=== PATIENT | female | born 1985 | race African-American/Black ===

== ENCOUNTER 2019-01-28 22:37 | Inpatient (IN) | payer SELFPAY ==
[~2019-01-28] VITALS: Ht 167.6 cm; Wt 68.0 kg
[2019-01-28] MEDS ORDERED: LIDOCAINE 1% PF 30 ML VIAL. ONE (22:59)
[2019-01-28] MEDS ORDERED: OXYTOCIN 30 UNIT/500 ML PREMIX 500 ML IV ONE (22:59)
[2019-01-28] MEDS ORDERED: OXYTOCIN 30 UNIT/500 ML PREMIX 500 ML IV PRN ×2 (23:15→23:30)
[2019-01-28] MEDS ORDERED: 0.9 % SODIUM CHLORIDE 10 ML DISP.SYRIN. IV PRN ×2 (23:15→23:30)
[2019-01-28] MEDS ORDERED: LIDOCAINE 1% PF 30 ML VIAL. INJ PRN (23:15)
[2019-01-28] MEDS ORDERED: IBUPROFEN 400 MG TABLET. PO PRN ×2 (23:15→23:30)
[2019-01-28] MEDS ORDERED: TERBUTALINE 1 MG/ML VIAL. SQ PRN (23:15)
--- NOTE | 2019-01-28 23:20 | PDOC1 ---
OB - History Hx of Present Care: Limited Care Ultrasounds: No ultrasounds Obstetrical Complications: None Medical Complications: None Other Concerns: previous c/s x 1, then x 5 Past Family/Social History * Past Medical, Surgical, Family and Obstetric Histories reviewed from chart. Blood Type: Unknown Rubella: Unknown RPR/VDRL: Unknown GBS Status: Unknown HBsAG: Unknown OB - Chief Complaint & HPI Date of Admission: Date of Admission: Jan 28, 2019 at 22:37 Chief Complaint/History : 7 Para: 6 EGA: 36 Reason for admission: labor Admission Nurse Assessment Rev: Yes OB - Admission Exam Physical Exam HEENT: Other (dilated pupils) Heart: Other (tachycardia) Lungs: Clear Abdomen: Gravid, Non tender, Soft Extremities: No tenderness or swelling Reflexes: Normal Cervical Dilatation: 10cm Effacement: 100% Station: +3 Membranes: Intact Heart Rate: Normal Accelerations: Accelerations Present Contractions on Admission: < 5 Minutes Apart Intensity: Firm Text A: 36 wks IUP PTL Previous c/s x 1 Previous x 5 Limited PNC P: Admit labor management. SONIA VALE Jr, MD Jan 28, 2019 23:20
--- NOTE | 2019-01-28 23:22 | PDOC ---
VAGINAL DELIVERY DATE DATE: 01/28/19 TIME: 23:20 : 7 Para: 7 EGA: 36 VAGINAL DELIVERY: VTX VACCUM ASSISTED: No PLACENTA: Spontaneous 8/9 SEX: Female WEIGHT Weight [2845 gm ] Nuchal Cord: No Amniotic Fluid: Clear PAIN: Natural EPISIOTOMY: No EXTENSION: No EBL 300 ml COMPLICATIONS none CONDITION pt. stable Signs of Intrauterine Infectio: None Shoulder Dystocia: No SONIA VALE Jr, MD Jan 28, 2019 23:22
[2019-01-28] MEDS ORDERED: BENZOCAINE 20% TOPICAL AEROSOL SPRAY 57GM CAN. TP PRN (23:30)
[2019-01-28] MEDS ORDERED: MMR per PROTOCOL. MC PRN (23:30)
[2019-01-28] MEDS ORDERED: ACETAMINOPHEN 325 MG TABLET. PO PRN (23:30)
[2019-01-28] MEDS ORDERED: MAGNESIUM HYDROXIDE 2,400 MG/30 ML ORAL.SUSP. PO PRN (23:30)
[2019-01-28] MEDS ORDERED: diphenhydrAMINE HCL 25 MG CAPSULE PO PRN (23:30)
[2019-01-28] MEDS ORDERED: DOCUSATE SODIUM 100 MG CAPSULE. PO PRN (23:30)
[2019-01-28] MEDS ORDERED: SIMETHICONE 80 MG TAB.CHEW PO PRN (23:30)
[2019-01-28] MEDS ORDERED: MAG HYDROX/ALUMINUM HYD/SIMETH 30 ML ORAL.SUSP PO PRN (23:30)
[2019-01-28] MEDS ORDERED: ZOLPIDEM 5 MG TABLET. PO PRN (23:30)
[2019-01-28] MEDS ORDERED: oxyCODONE/APAP 5/325 1 TAB TABLET PO PRN (23:30)
[2019-01-28] MEDS: IV RINGERS,LACTATED 1000ML 1,000 ML IV SCH (23:30)
[2019-01-28] MEDS ORDERED: HYDROCORTISONE 1% TOPICAL OINTMENT 30GM TUBE. TP PRN (23:30)
[2019-01-28] MEDS ORDERED: PHENYLEPH/MINERAL OIL/PETROLAT RECTAL OINTMENT TUBE. RC PRN (23:30)
[2019-01-28 23:41] LABS: BILIRUBIN,URINE SMALL (NEG); CLARITY,URINE TURBID; COLOR,URINE AMBER; NITRITE,URINE NEGATIVE (NEG); PROTEIN,URINE >=300 mg/dL (NEG-TRACE)
[2019-01-28 23:47] LABS: BASO % 0 % (0-3); EOS # 0.1 x10^3/uL (0.0-0.7); EOS % 1 % (0-3); HEMATOCRIT 38.7 % (36.0-47.0); LYMPH # 2.3 x10^3/uL (1.0-4.8); LYMPH % 24 % (24-48); MEAN CORPUSCULAR HEMOGLOBIN 32 pg (25-35); MEAN CORPUSCULAR HGB CONC 34 g/dL (31-37); MEAN CORPUSCULAR VOLUME 96 fL (79-100); MONO # 0.7 x10^3/uL (0.0-1.1); MONO % 7 % (0-9); NEUT # 6.6 x10^3/uL (1.8-7.7); NEUT % 68 % (31-73); PLATELET COUNT 174 x10^3/uL (140-400); RED BLOOD COUNT 4.02 x10^6/uL (3.50-5.40); RED CELL DISTRIBUTION WIDTH 14.1 % (11.5-14.5); WHITE BLOOD COUNT 9.7 x10^3/uL (4.0-11.0)
[2019-01-28 23:57] LABS: BARBITURATES NEG (NEG); BENZODIAZEPINES NEG (NEG); CANNABINOIDS NEG (NEG); COCAINE NEG (NEG); METHADONE NEG (NEG); OPIATES NEG (NEG); PHENCYCLIDINE POS (NEG)
[2019-01-28 23:58] LABS: AMPHETAMINE/METHAMPHETAMINE NEG (NEG)
[2019-01-29 03:00] VITALS: BP 96/62
[2019-01-29 05:07] LABS: BASO % 0 % (0-3); EOS # 0.1 x10^3/uL (0.0-0.7); EOS % 1 % (0-3); HEMATOCRIT 36.2 % (36.0-47.0); HEMOGLOBIN 12.3 g/dL (12.0-15.5); LYMPH # 1.8 x10^3/uL (1.0-4.8); LYMPH % 14 % (24-48); MEAN CORPUSCULAR HEMOGLOBIN 33 pg (25-35); MEAN CORPUSCULAR HGB CONC 34 g/dL (31-37); MEAN CORPUSCULAR VOLUME 96 fL (79-100); MONO # 1.3 x10^3/uL (0.0-1.1); MONO % 10 % (0-9); NEUT # 9.5 x10^3/uL (1.8-7.7); NEUT % 75 % (31-73); PLATELET COUNT 172 x10^3/uL (140-400); RED BLOOD COUNT 3.77 x10^6/uL (3.50-5.40); RED CELL DISTRIBUTION WIDTH 13.9 % (11.5-14.5); WHITE BLOOD COUNT 12.6 x10^3/uL (4.0-11.0)
[2019-01-29 06:00] VITALS: BP 107/67
[2019-01-29] MEDS: IV RINGERS,LACTATED 1000ML 1,000 ML IV SCH ×3 (07:30→21:35)
[2019-01-29] MEDS: FERROUS SULFATE 325 MG TABLET. PO SCH ×2 (08:00→17:00)
[2019-01-29 11:20] VITALS: BP 96/58
--- NOTE | 2019-01-29 13:16 | PDOC ---
OB Progress Note Date of Service 01/29/19 Time of Evaluation 1315 Notes Pt. feeling well. Pt. informed of PCP in urine and infant's stool. Social work consult. Lab Laboratory Tests Test 01/28/19 23:30 01/28/19 23:40 01/29/19 03:35 Urine Collection Type U cath Urine Color Rosa Urine Clarity Turbid Urine pH 6.0 Urine Specific [place] >=1.030 Urine Protein >=300 mg/dL (NEG-TRACE) Urine Glucose (UA) Negative mg/dL (NEG) Urine Ketones (Stick) 15 mg/dL (NEG) Urine Blood Moderate (NEG) Urine Nitrite Negative (NEG) Urine Bilirubin Small (NEG) Urine Urobilinogen Dipstick 1.0 mg/dL (0.2 mg/dL) Urine Leukocyte Esterase Trace (NEG) Urine Opiates Screen Neg (NEG) Urine Methadone Screen Neg (NEG) Urine Barbiturates Neg (NEG) Urine Phencyclidine Screen Pos (NEG) Urine Amphetamine/Methamphetamine Neg (NEG) Urine Benzodiazepines Screen Neg (NEG) Urine Cocaine Screen Neg (NEG) Urine Cannabinoids Screen Neg (NEG) Urine Ethyl Alcohol Neg (NEG) Treponema pallidum Antibody Nonreactive (Nonreactive) Hepatitis B Surface Antigen Nonreactive (Nonreactive) White Blood Count 9.7 x10^3/uL (4.0-11.0) 12.6 x10^3/uL (4.0-11.0) Red Blood Count 4.02 x10^6/uL (3.50-5.40) 3.77 x10^6/uL (3.50-5.40) Hemoglobin 13.0 g/dL (12.0-15.5) 12.3 g/dL (12.0-15.5) Hematocrit 38.7 % (36.0-47.0) 36.2 % (36.0-47.0) Mean Corpuscular Volume 96 fL (79-100) 96 fL (79-100) Mean Corpuscular Hemoglobin 32 pg (25-35) 33 pg (25-35) Mean Corpuscular Hemoglobin Concent 34 g/dL (31-37) 34 g/dL (31-37) Red Cell Distribution Width 14.1 % (11.5-14.5) 13.9 % (11.5-14.5) Platelet Count 174 x10^3/uL (140-400) 172 x10^3/uL (140-400) Neutrophils (%) (Auto) 68 % (31-73) 75 % (31-73) Lymphocytes (%) (Auto) 24 % (24-48) 14 % (24-48) Monocytes (%) (Auto) 7 % (0-9) 10 % (0-9) Eosinophils (%) (Auto) 1 % (0-3) 1 % (0-3) Basophils (%) (Auto) 0 % (0-3) 0 % (0-3) Neutrophils # (Auto) 6.6 x10^3/uL (1.8-7.7) 9.5 x10^3/uL (1.8-7.7) Lymphocytes # (Auto) 2.3 x10^3/uL (1.0-4.8) 1.8 x10^3/uL (1.0-4.8) Monocytes # (Auto) 0.7 x10^3/uL (0.0-1.1) 1.3 x10^3/uL (0.0-1.1) Eosinophils # (Auto) 0.1 x10^3/uL (0.0-0.7) 0.1 x10^3/uL (0.0-0.7) Basophils # (Auto) 0.0 x10^3/uL (0.0-0.2) 0.0 x10^3/uL (0.0-0.2) Laboratory Tests Test 01/28/19 23:30 01/28/19 23:40 01/29/19 03:35 Urine Collection Type U cath Urine Color Rosa Urine Clarity Turbid Urine pH 6.0 Urine Specific [place] >=1.030 Urine Protein >=300 mg/dL (NEG-TRACE) Urine Glucose (UA) Negative mg/dL (NEG) Urine Ketones (Stick) 15 mg/dL (NEG) Urine Blood Moderate (NEG) Urine Nitrite Negative (NEG) Urine Bilirubin Small (NEG) Urine Urobilinogen Dipstick 1.0 mg/dL (0.2 mg/dL) Urine Leukocyte Esterase Trace (NEG) Urine Opiates Screen Neg (NEG) Urine Methadone Screen Neg (NEG) Urine Barbiturates Neg (NEG) Urine Phencyclidine Screen Pos (NEG) Urine Amphetamine/Methamphetamine Neg (NEG) Urine Benzodiazepines Screen Neg (NEG) Urine Cocaine Screen Neg (NEG) Urine Cannabinoids Screen Neg (NEG) Urine Ethyl Alcohol Neg (NEG) Treponema pallidum Antibody Nonreactive (Nonreactive) Hepatitis B Surface Antigen Nonreactive (Nonreactive) White Blood Count 9.7 x10^3/uL (4.0-11.0) 12.6 x10^3/uL (4.0-11.0) Red Blood Count 4.02 x10^6/uL (3.50-5.40) 3.77 x10^6/uL (3.50-5.40) Hemoglobin 13.0 g/dL (12.0-15.5) 12.3 g/dL (12.0-15.5) Hematocrit 38.7 % (36.0-47.0) 36.2 % (36.0-47.0) Mean Corpuscular Volume 96 fL (79-100) 96 fL (79-100) Mean Corpuscular Hemoglobin 32 pg (25-35) 33 pg (25-35) Mean Corpuscular Hemoglobin Concent 34 g/dL (31-37) 34 g/dL (31-37) Red Cell Distribution Width 14.1 % (11.5-14.5) 13.9 % (11.5-14.5) Platelet Count 174 x10^3/uL (140-400) 172 x10^3/uL (140-400) Neutrophils (%) (Auto) 68 % (31-73) 75 % (31-73) Lymphocytes (%) (Auto) 24 % (24-48) 14 % (24-48) Monocytes (%) (Auto) 7 % (0-9) 10 % (0-9) Eosinophils (%) (Auto) 1 % (0-3) 1 % (0-3) Basophils (%) (Auto) 0 % (0-3) 0 % (0-3) Neutrophils # (Auto) 6.6 x10^3/uL (1.8-7.7) 9.5 x10^3/uL (1.8-7.7) Lymphocytes # (Auto) 2.3 x10^3/uL (1.0-4.8) 1.8 x10^3/uL (1.0-4.8) Monocytes # (Auto) 0.7 x10^3/uL (0.0-1.1) 1.3 x10^3/uL (0.0-1.1) Eosinophils # (Auto) 0.1 x10^3/uL (0.0-0.7) 0.1 x10^3/uL (0.0-0.7) Basophils # (Auto) 0.0 x10^3/uL (0.0-0.2) 0.0 x10^3/uL (0.0-0.2) Medications Current Medications Lidocaine HCl (Xylocaine 1% Pf 30ml Vial) 30 ml STK-MED ONCE .ROUTE ; Start 01/28/19 at 22:59; Stop 01/28/19 at 22:59; Status DC Oxytocin/Sodium Chloride 500 ml @ As Directed STK-MED ONCE IV ; Start 01/28/19 at 22:59; Stop 01/28/19 at 22:59; Status DC Sodium Chloride (Normal Saline Flush) 3 ml QSHIFT PRN IV AFTER MEDS AND BLOOD DRAWS; Start 01/28/19 at 23:15 Ringer's Solution 1,000 ml @ 125 mls/hr Q8H IV ; Start 01/28/19 at 23:30 Terbutaline Sulfate (Brethine) 0.25 mg 1X PRN PRN SQ SEE COMMENTS; Start 01/28/19 at 23:15; Stop 01/29/19 at 23:14 Lidocaine HCl (Xylocaine 1% Pf 30ml Vial) 30 ml 1X PRN PRN INJ SEE COMMENTS; Start 01/28/19 at 23:15; Stop 01/30/19 at 23:14 Oxytocin/Sodium Chloride 500 ml @ 0 mls/hr CONT PRN PRN IV Post delivery bleeding; Start 01/28/19 at 23:15 Ibuprofen (Motrin) 800 mg PRN Q6HRS PRN PO MODERATE PAIN 4-6 Last administered on 01/29/19at 01:37; Start 01/28/19 at 23:15; Stop 01/29/19 at 11:11; Status DC Sodium Chloride (Normal Saline Flush) 10 ml QSHIFT PRN IV AFTER MEDS AND BLOOD DRAWS; Start 01/28/19 at 23:30 Oxytocin/Sodium Chloride 500 ml @ 62.5 mls/hr CONT PRN IV SEE I/O RECORD; Start 01/28/19 at 23:30; Stop 01/29/19 at 07:29; Status DC Acetaminophen (Tylenol) 650 mg PRN Q6HRS PRN PO MILD PAIN / TEMP; Start 01/28/19 at 23:30 Ibuprofen (Motrin) 800 mg PRN Q8HRS PRN PO INFLAMMATION/PAIN PREVENTION; Start 01/28/19 at 23:30 Docusate Sodium (Colace) 100 mg PRN BID PRN PO CONSTIPATION 1ST CHOICE; Start 01/28/19 at 23:30 Magnesium Hydroxide (Milk Of Magnesia) 2,400 mg PRN DAILY PRN PO CONSTIPATION 2ND CHOICE; Start 01/28/19 at 23:30 Al Hydroxide/Mg Hydroxide (Mylanta Plus Xs) 30 ml PRN Q4HRS PRN PO HEARTBURN / GAS; Start 01/28/19 at 23:30 Simethicone (Gas-X) 80 mg PRN AFTMEALHC PRN PO GAS / BLOATING; Start 01/28/19 at 23:30 Diphenhydramine HCl (Benadryl) 25 mg PRN Q6HRS PRN PO ITCHING; Start 01/28/19 at 23:30 Benzocaine (Americaine) 1 spray PRN QID PRN TP TOPICAL PAIN; Start 01/28/19 at 23:30 Phenyleph/Shark Oil/Min Oil/Petrol (Preparation H) 1 jose PRN QID PRN RC RECTAL PAIN; Start 01/28/19 at 23:30 Hydrocortisone (Cortaid) 1 jose PRN QID PRN TP PERINEAL PAIN; Start 01/28/19 at 23:30 Ferrous Sulfate (Feosol) 325 mg BIDWMEALS PO ; Start 01/29/19 at 08:00 Zolpidem Tartrate (Ambien) 5 mg PRN QHS PRN PO INSOMNIA, MAY REPEAT X1; Start 01/28/19 at 23:30 Info (Do NOT chart on this placeholder) 1 ea 1X PRN PRN MC SEE COMMENTS; Start 01/28/19 at 23:30 Info (Do NOT chart on this placeholder) 1 ea 1X PRN PRN MC SEE COMMENTS; Start 01/28/19 at 23:30 Oxycodone/ Acetaminophen (Percocet 5/325) 2 tab PRN Q4HRS PRN PO MODERATE PAIN, SEVERE PAIN; Start 01/28/19 at 23:30 Active Scripts Active Reported No Known Medications Prior To Admisstion (Info) Each 1 Each Exam Abd: soft, non tender, fundus firm Assessment PPD# 1 s/p Plan of Care: Continue current Tx, Mgmt SONIA VALE Jr, MD Jan 29, 2019 13:16
[2019-01-29 17:07] VITALS: BP 108/67
[2019-01-29 23:15] VITALS: BP 110/68
[2019-01-30 06:10] VITALS: BP 114/76
--- NOTE | 2019-01-30 11:13 | NUR ---
SS following for referral regarding "+PCP in maternal and UDS. Questionable custody of other children." SS reviewed pt chart. Pt was positive for PCP in UDS. Hotline report made by infant RN on 01/29/2019. Hotline# [phone]. DCF worker, Li, , came to hospital this morning and met with mother and Dr. Layne. DCF worker met with SS and reported that she was filing for Ex-Parte order to bring infant into DCF custody. Li reported that it would take the court 24-48 hours to obtain the orders and requested that infant remain in the hospital until orders are received. SS provided DCF worker with my contact information. SS will await receipt of court orders and notification of placement and will proceed accordingly. Infant and mother RN notified.
[2019-01-30 11:55] VITALS: BP 110/74
--- NOTE | 2019-01-30 16:57 | PDOC3 ---
OB DISCHARGE SUMMARY DATE OF ADMISSION: 01/28/19 DATE OF DISCHARGE: 01/30/19 REASON FOR ADMISSION: Onset of labor INTRAPARTUM PROCEDURES: Spontanous Vag Deliv DISCHARGE DIAGNOSIS: Others (PTD) DISCHARGE INFORMATION: Activity (ad virginie), Diet (regular), Instructions (pelvic rest x 6 wks) HOSPITAL COURSE PTL delivered vaginally without complications. Pt. positive PCP UDS. Limited care. SONIA VALE Jr, MD Jan 30, 2019 16:56
[2019-01-30] MEDS ORDERED: IBUP-1027 PO (16:58)
--- NOTE | 2019-01-30 16:58 | DISCH ---
DISCHARGE INSTRUCTIONS Condition on Discharge Condition on Discharge: Stable Activity After Discharge Activity Instructions for Disc: Activity as tolerated Lifting Instructions after Dis: No heavy lifting Driving Instructions after Dis: Do not drive today Diet after Discharge Diet after Discharge: Regular Contacting the DRJanna after DC Call your doctor for: Concerns you may have Follow-Up Follow up with: Dr. Sultana in 6 wks. SONIA SULTANA Jr, MD Jan 30, 2019 16:58
--- NOTE | 2019-01-30 17:23 | NUR ---
home instructions gone over with pt informed that will stay due to weight loss. she was offered boarder status pt refuses states needs to go home and prepare for does not have things ready. no questions on home care for her instructed to see dr bonilla in 6 weeks went over complications to watch for states understands. pt ready to leave instructed pt did not have to leave at this minute. [facility] has things to do
[2019-01-30 17:38] VITALS: BP 112/78
== END 2019-01-30 17:43 | disposition home or self-care (01) | DRG 807 ==
LOC: OBSVTOIN 22:37 → 3 SO LND 22:37 → 3 NORTH 01-29 03:00
PROVIDERS: ADMIT Obstetrics & Gynecology; ATTEND Obstetrics & Gynecology
PROC: 10E0XZZ Delivery of Products of Conception, External Approach (ICD-10-PCS; principal; 2019-01-28)
DX: O60.14X0 Preterm labor third trimester with preterm delivery third trimester, not applicable or unspecified (principal); Z37.0 Single live birth; O34.219 Maternal care for unspecified type scar from previous cesarean delivery; Z3A.36 36 weeks gestation of pregnancy
CPT/HCPCS: 36415; 80307; 81003; 85025; 86592; 86762; 86850; 86900; 86901; 87340; G0378